=== PATIENT | male | born 1975 | race Caucasian/White ===

== ENCOUNTER 2017-05-21 15:36 | Emergency (ER) | payer SELFPAY ==
[2017-05-21 16:02] LABS: #Eosinphils 0.1 thou/uL (0.0-0.7); #Lymphocytes 1.9 thou/uL (1.20-3.40); %Basophils 0.3 % (0.0-1.0); %Eosinophils 0.9 % (0.0-10.0); %Lymphocytes 18.9 % (21.0-51.0); %Monocytes 10.1 % (0.0-10.0); Hematocrit 45.2 % (42.0-52.0); Mean Platelet Volume 8.1 fL (7.4-10.4); Red Blood Cell (RBC) Count 4.97 mill/uL (4.70-6.10); White Blood Cell (WBC) Count 10.1 thou/uL (4.8-10.8)
[2017-05-21 16:27] LABS: ALT (SGPT) 33 U/L (8-55); AST (SGOT) 20 U/L (5-34); Alkaline Phosphatase 66 U/L (40-150); Anion Gap 13 mmol/L (10-20); BUN (Urea Nitrogen) 15 mg/dL (8.9-20.6); Bilirubin, Total 0.3 mg/dL (0.2-1.2); Calc. Creatinine Clearance 0 mL/min (70-130); Calcium 9.1 mg/dL (7.8-10.44); Carbon Dioxide 25 mmol/L (22-29); Chloride 103 mmol/L (98-107); Estimated GFR-MDRD Greater than 90; Globulin 3.2 g/dL (2.4-3.5); Lipase 8 U/L (8-78); Protein, Total 7.1 g/dL (6.0-8.3)
[2017-05-21] MEDS ORDERED: Ondansetron HCl/PF 4 MG/2 ML Vial ONE (16:37)
[2017-05-21] MEDS ORDERED: HYDROmorphone 0.5 MG/0.5 ML SYRINGE ONE (16:38)
[2017-05-21] MEDS ORDERED: ISOVUE-370 76%-LOCM 1 ML ONE (17:18)
--- NOTE | 2017-05-21 18:44 | CT ---
CT ABDOMEN AND PELVIS WITH IV CONTRAST 05/21/17 HISTORY: Abdominal pain. COMPARISON: 11/19/11. FINDINGS: The lung bases are clear. The liver, spleen, kidneys, adrenal glands, and pancreas are within normal limits. Urinary bladder is unremarkable. Reactive appearing lymph nodes are scattered throughout the mesentery. No free air or free fluid are visible. Lack of oral contrast limits evaluation of the bowel. There is no evidence of obstruction. The append ix is surgically absent. IMPRESSION: Postoperative changes. No significant abnormalities are demonstrated. POS: LINDYH
[2017-05-21 19:00] LABS: Bilirubin Negative (Negative); Blood, Urine Trace (Negative); Glucose, Urine (Dipstick) Negative (Negative); Ketone, Urine Negative (Negative); Nitrite Negative (Negative); Protein, Urine (Dipstick) Negative (Neg-Trace); Urobilinogen 0.2 mg/dL (0.2-1.0)
[2017-05-21 19:02] LABS: Bacteria/HPF None Seen HPF (None Seen); Hyaline Casts/LPF 0-3 HYALINE CAST LPF (0-3 Hyaline); RBC/HPF 0-3 HPF (0-3); Squamous Epithelial None Seen HPF (0-3); WBC/HPF None Seen HPF (0-3)
== END 2017-05-21 19:25 | disposition home or self-care (01) ==
LOC: ERS 15:36
DX: K52.9 Noninfective gastroenteritis and colitis, unspecified (principal); Z71.6 Tobacco abuse counseling; Z87.891 Personal history of nicotine dependence
CPT/HCPCS: 36415; 74177; 80053; 81003; 81015; 83690; 85025; 96361; 96374; 96375; 99406; J1170; J2405

== ENCOUNTER 2019-04-17 20:19 | Emergency (ER) | payer SELFPAY ==
[2019-04-17] MEDS ORDERED: Ibuprofen 200 MG TAB ONE (21:14)
--- NOTE | 2019-04-17 23:04 | RAD ---
AP PELVIS RADIOGRAPH: 04/17/19 HISTORY: Left hip and back pain. COMPARISON: 05/27/13. FINDINGS: There is no evidence of a fracture or dislocation. Views of the pelvis are overall stable compared to prior study. IMPRESSION: No acute osseous abnormality. POS: OFF
--- NOTE | 2019-04-17 23:05 | RAD ---
TWO VIEWS LEFT HIP: 04/17/19 HISTORY: Left hip pain. COMPARISON: Views left femur on 05/27/13. FINDINGS: There is no evidence of a fracture, dislocation, or other osseous abnormality involving the left hip. Views of the left hip are similar to views of the left hip on prior study. No acute osseous abnormality. POS: OFF
--- NOTE | 2019-04-17 23:06 | RAD ---
TWO VIEWS THORACIC SPINE: 04/17/19 HISTORY: Back pain. COMPARISON: None. FINDINGS: The vertebral body heights and intervertebral disc spaces are within normal limits. No fracture or alex bluxation is appreciated involving the thoracic spine. IMPRESSION: No acute osseous abnormality seen. POS: OFF
== END 2019-04-17 23:25 | disposition home or self-care (01) ==
LOC: ERS 20:19
DX: M54.9 Dorsalgia, unspecified (principal); M25.552 Pain in left hip; I25.2 Old myocardial infarction; F31.9 Bipolar disorder, unspecified; F17.220 Nicotine dependence, chewing tobacco, uncomplicated; V89.2XXA Person injured in unspecified motor-vehicle accident, traffic, initial encounter
CPT/HCPCS: 72070; 72170